=== PATIENT | female | born 2000 | race Caucasian/White ===

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

== ENCOUNTER 2020-06-19 00:39 | Inpatient (IN) | payer BC ==
[~2020-06-19] VITALS: Ht 175.3 cm; Wt 102.3 kg
[2020-06-19 00:41] VITALS: BP 119/82
[2020-06-19] MEDS ORDERED: AMPICILLIN 2 GM in SODIUM CHLORIDE 0.9% 100 ML IVPB STA (02:03)
[2020-06-19] MEDS ORDERED: LIDOCAINE 1%, 20ML ONE (02:05)
[2020-06-19] MEDS ORDERED: MISOPROSTOL 200 MCG TABLET ONE (02:05)
[2020-06-19] MEDS ORDERED: OXYTOCIN 30U/ 0.9% NaCL 500ML 500 ML ONE ×2 (02:05→19:01)
[2020-06-19] MEDS: LACTATED RINGERS 1,000 ML IV SCH ×4 (02:24→16:30)
[2020-06-19] MEDS ORDERED: CALCIUM CARBONATE 500 MG TAB.CHEW PO PRN (02:30)
[2020-06-19] MEDS ORDERED: TERBUTALINE 1 MG/ML, 1ML IVPush PRN (02:30)
[2020-06-19] MEDS ORDERED: TERBUTALINE 1 MG/ML, 1ML SQ PRN (02:30)
[2020-06-19] MEDS ORDERED: OXYTOCIN 30U/ 0.9% NaCL 500ML 500 ML IV PRN (02:30)
[2020-06-19] MEDS ORDERED: FENTANYL PF 100 MCG/2ML IVPush PRN (02:30)
[2020-06-19] MEDS ORDERED: ONDANSETRON 2MG/ML, 2ML IVPush PRN (02:30)
[2020-06-19] MEDS ORDERED: D5%-LACTATED RINGERS 1,000 ML IV SCH (02:30)
[2020-06-19 02:32] VITALS: BP 119/82
[2020-06-19 02:56] LABS: BASOPHILS % (AUTO) 0 % (0-1); EOSINOPHILS % (AUTO) 0 % (1-7); LYMPHOCYTES % (AUTO) 15 % (22-44); MEAN CORPUSCULAR HEMOGLOBIN 18.4 pg (27.0-34.8); MEAN CORPUSCULAR HGB CONC 30.6 g/dL (32.4-35.8); MEAN PLATELET VOLUME 8.9 fL (7.4-10.4); MONOCYTES % (AUTO) 7 % (2-9); NEUTROPHILS % (AUTO) 77 % (42-75); PLATELET COUNT 276 x10^3/uL (130-400); RED BLOOD COUNT 5.04 x10^6/uL (3.82-5.3); RED CELL DISTRIBUTION WIDTH 17.3 % (9.6-15.2)
[2020-06-19 03:00] LABS: MD NO
[2020-06-19] MEDS ORDERED: PREN1TAB60 PO (03:00)
[2020-06-19] MEDS ORDERED: FENTANYL PF 100 MCG/2ML ONE (04:28)
[2020-06-19] MEDS: FENTANYL PF 100 MCG/2ML IV PRN ×2 (04:30→06:08)
[2020-06-19] MEDS: AMPICILLIN 1 GM in SODIUM CHLORIDE 0.9% 100 ML IVPB SCH ×4 (06:29→14:20)
[2020-06-19 06:42] LABS: AMPHETAMINE SCREEN, URINE Negative (Negative); BARBITURATE SCREEN, URINE Negative (Negative); BENZODIAZEPINE SCREEN, URINE Negative (Negative); CANNABINOID SCREEN, URINE Positive (Negative); COCAINE SCREEN, URINE Negative (Negative); METHADONE SCREEN, URINE Negative (Negative); OPIATE SCREEN, URINE Negative (Negative)
[2020-06-19] MEDS ORDERED: NALOXONE 0.4 MG/ML, 1ML IVPush PRN (08:30)
[2020-06-19] MEDS ORDERED: FENTANYL/BUPIV./NS/PF 250 ML EPIDCONT SCH (08:30)
[2020-06-19] MEDS ORDERED: LACTATED RINGERS 1,000 ML IVBOLUS PRN (08:30)
[2020-06-19] MEDS ORDERED: EPHEDRINE 50 MG/ML, 1ML IVPush PRN (08:30)
[2020-06-19] MEDS ORDERED: FENTANYL/BUPIV./NS/PF 250 ML EPIDCONT ONE (10:19)
[2020-06-19] MEDS ORDERED: BUPIVACAINE 0.25% ONE (10:23)
[2020-06-19] MEDS ORDERED: LACTATED RINGERS 1,000 ML INTUTE SCH (13:00)
[2020-06-19] MEDS ORDERED: LACTATED RINGERS 1,000 ML INTUTE PRN (13:00)
[2020-06-19] MEDS ORDERED: NEWBORN KIT ONE (17:13)
[2020-06-19] MEDS ORDERED: IBUPROFEN 800 MG TABLET PO PRN (18:30)
[2020-06-19] MEDS ORDERED: OXYcodone IR 5MG TABLET PO PRN (18:30)
[2020-06-19] MEDS ORDERED: ACETAMINOPHEN 325 MG TABLET PO PRN (18:30)
[2020-06-19] MEDS ORDERED: SIMETHICONE 80 MG CHEW TAB PO PRN (18:30)
[2020-06-19] MEDS ORDERED: ONDANSETRON 2MG/ML, 2ML IV PRN (18:30)
[2020-06-19] MEDS ORDERED: MISOPROSTOL 200 MCG TABLET SL PRN (18:30)
[2020-06-19] MEDS: OXYTOCIN 30U/ 0.9% NaCL 500ML 500 ML IV SCH (19:07)
[2020-06-19 20:37] VITALS: BP 118/75
[2020-06-19 23:47] VITALS: BP 110/74
[2020-06-20] MEDS: LACTATED RINGERS 1,000 ML IV SCH ×3 (00:30→16:30)
[2020-06-20] MEDS: OXYTOCIN 30U/ 0.9% NaCL 500ML 500 ML IV SCH ×2 (03:52→14:30)
[2020-06-20 04:17] VITALS: BP 113/76
[2020-06-20 05:30] LABS: BASOPHILS % (AUTO) 0 % (0-1); EOSINOPHILS % (AUTO) 0 % (1-7); LYMPHOCYTES % (AUTO) 11 % (22-44); MEAN CORPUSCULAR HEMOGLOBIN 18.6 pg (27.0-34.8); MEAN CORPUSCULAR HGB CONC 31.4 g/dL (32.4-35.8); MEAN PLATELET VOLUME 8.7 fL (7.4-10.4); MONOCYTES % (AUTO) 5 % (2-9); NEUTROPHILS % (AUTO) 85 % (42-75); PLATELET COUNT 199 x10^3/uL (130-400); RED BLOOD COUNT 4.21 x10^6/uL (3.82-5.3); RED CELL DISTRIBUTION WIDTH 17.4 % (9.6-15.2)
[2020-06-20 05:32] LABS: MD NO
[2020-06-20 07:37] VITALS: BP 111/70
[2020-06-20] MEDS: DOCUSATE 100 MG CAPSULE PO PRN (07:37)
[2020-06-20] MEDS: PRENATAL VIT/IRON/FA 1 EACH TABLET PO SCH (07:37)
[2020-06-20 12:15] VITALS: BP 108/69
[2020-06-20 13:59] LABS: BASOPHILS % (AUTO) 0 % (0-1); EOSINOPHILS % (AUTO) 0 % (1-7); LYMPHOCYTES % (AUTO) 12 % (22-44); MEAN CORPUSCULAR HEMOGLOBIN 18.8 pg (27.0-34.8); MEAN CORPUSCULAR HGB CONC 31.4 g/dL (32.4-35.8); MONOCYTES % (AUTO) 4 % (2-9); NEUTROPHILS % (AUTO) 84 % (42-75); PLATELET COUNT 247 x10^3/uL (130-400); RED BLOOD COUNT 4.22 x10^6/uL (3.82-5.3); RED CELL DISTRIBUTION WIDTH 17.4 % (9.6-15.2)
[2020-06-20 14:00] LABS: MD NO
[2020-06-20] MEDS ORDERED: FERROUS SULFATE 325 MG TABLET PO SCH (17:00)
[2020-06-20 19:40] VITALS: BP 119/82
[2020-06-21] MEDS: LACTATED RINGERS 1,000 ML IV SCH ×2 (00:30→08:30)
[2020-06-21] MEDS: OXYTOCIN 30U/ 0.9% NaCL 500ML 500 ML IV SCH (00:30)
[2020-06-21 07:45] VITALS: BP 116/80
[2020-06-21] MEDS: PRENATAL VIT/IRON/FA 1 EACH TABLET PO SCH (07:45)
[2020-06-21] MEDS ORDERED: IBUP-1223 PO (09:21)
[2020-06-21] MEDS ORDERED: FERR325T23 PO (09:21)
[2020-06-21] MEDS ORDERED: DOCU-131 PO (09:21)
[2020-06-21] MEDS: DOCUSATE 100 MG CAPSULE PO PRN (10:03)
== END 2020-06-21 10:18 | disposition home or self-care (01) | DRG 806 ==
LOC: LDOP 00:39 → LDIP 02:04 → 2NW 20:13
PROVIDERS: ADMIT Student in an Organized Health Care Education/Training Program; ATTEND Student in an Organized Health Care Education/Training Program
PROC: 10E0XZZ Delivery of Products of Conception, External Approach (ICD-10-PCS; principal; 2020-06-19)
PROC: 0UQMXZZ Repair Vulva, External Approach (ICD-10-PCS; 2020-06-19)
PROC: 3E0R3BZ Introduction of Anesthetic Agent into Spinal Canal, Percutaneous Approach (ICD-10-PCS; 2020-06-19)
PROC: 00HU33Z Insertion of Infusion Device into Spinal Canal, Percutaneous Approach (ICD-10-PCS; 2020-06-19)
DX: O48.0 Post-term pregnancy (principal); D62 Acute posthemorrhagic anemia; Z37.0 Single live birth; O99.324 Drug use complicating childbirth; O69.81X0 Labor and delivery complicated by cord around neck, without compression, not applicable or unspecified; O76 Abnormality in fetal heart rate and rhythm complicating labor and delivery; O70.0 First degree perineal laceration during delivery; O99.02 Anemia complicating childbirth; F12.90 Cannabis use, unspecified, uncomplicated; O99.824 Streptococcus B carrier state complicating childbirth; Z20.828 Contact with and (suspected) exposure to other viral communicable diseases; Z3A.41 41 weeks gestation of pregnancy; Z91.19 Patient's noncompliance with other medical treatment and regimen
CPT/HCPCS: 36415; J7121; 80307; 85025; 86592; 86850; 86900; 87635; G0378; J0290; J3010; J2590; J7120